=== PATIENT | female | born 1955 | race Caucasian/White ===

== ENCOUNTER 2019-08-16 18:53 | Inpatient (IN) | payer OTHER, MEDICARE ==
[~2019-08-16] VITALS: Ht 175.3 cm; Wt 67.8 kg
--- NOTE | 2019-08-16 18:53 | NUR ---
Patient BIBA ACLS, transferred to bed 4. RN evaluating patient at bedside.
[2019-08-16 18:55] VITALS: BP 136/86
--- NOTE | 2019-08-16 18:59 | NUR ---
PT TO ED VIA EMS FOR C/O SOB. PT TOOK AT HOME ALBUTEROL WITHOUT RELIEF. WHEEZES HEARD THROUGHOUT. TACHYPNIC ON ARRIVAL. BREATHING TX ESTABLISHED VIA EMS CREW. PT PLACED INTO BED FOR MD BAUTISTA.
--- NOTE | 2019-08-16 19:10 | NUR ---
PT PLACED ON 2L OF O2 FOR SATURATIONS BETWEEN 92%-94%.
--- NOTE | 2019-08-16 19:13 | NUR ---
REPORT TO MIGUEL YOU. ALL CARE TRANSFERED AT THIS TIME.
--- NOTE | 2019-08-16 19:30 | NUR ---
DR. ANDERSON AT BEDSIDE
[2019-08-16] MEDS ORDERED: IPRATROPIUM 0.02% 0.5 MG/2.5 ML NEBU INH ONE (19:35)
[2019-08-16] MEDS ORDERED: methylPREDNISolone SS 125 MG in WATER STERILE 2 ML IV ONE (19:35)
[2019-08-16] MEDS ORDERED: NACL 0.9% 1,000 ML IV ONE (19:35)
[2019-08-16] MEDS ORDERED: ALBUTEROL 0.083% 2.5 MG/3 ML NEBU INH ONE (19:43)
--- NOTE | 2019-08-16 19:59 | NUR ---
RT AT BEDSIDE
--- NOTE | 2019-08-16 20:19 | NUR ---
XRAY AT BEDSIDE
[2019-08-16 20:24] LABS: RED BLOOD CELL COUNT(AUTO) 5.45 MIL/uL (4.20-5.40)
[2019-08-16 20:36] LABS: HEMATOCRIT 47.9 % (36-48); MEAN CORPUSCULAR HEMOGLOBIN 29 pg (27-31); MEAN CORPUSCULAR HGB CONC 33 g/dL (33-37); PLATELET COUNT (AUTO) 51 K/uL (140-450); RED CELL DISTRIBUTION WIDTH 13.6 % (11.6-13.7); WHITE BLOOD COUNT (AUTO) 20.6 K/uL (4.8-10.8)
[2019-08-16 20:42] LABS: ALBUMIN 3.6 g/dL (3.4-5.0); ANION GAP 18.7 (8-16); CARBON DIOXIDE 21.9 mmol/L (21-32); CREATININE 0.8 mg/dL (0.6-1.3); POTASSIUM 3.6 mmol/L (3.5-5.1); TOTAL BILIRUBIN 1.3 mg/dL (0.0-1.0)
--- NOTE | 2019-08-16 21:00 | NUR ---
PT RESTING IN BED WITH EYES CLOSED. VSS. WILL CONTINUE TO MONITOR.
[2019-08-16] MEDS ORDERED: LEVOFLOXACIN 750 MG/D5W PREMIX 150 ML IV ONE (21:25)
[2019-08-16 21:27] LABS: LYMPHOCYTES % (MANUAL) 12 % (20-46); MONOCYTES % (MANUAL) 3 % (5-12)
[2019-08-16 22:00] VITALS: BP 107/70
--- NOTE | 2019-08-16 22:00 | NUR ---
ADMITTED A 64F FROM ER. CAME BY JOSUÉ DUE TO SOB AND PRODUCTIVE COUGH. AWAKE,ALERT AND ORIENTED X4. ON TEL MONITOR -ST. ON O22L/NC. NO DISTRESS NOTED. HAS STILL IBF INFUSING WELL ON THE RT HAND G#22. CLEAR AND PATENT. LEVAQUIN IVPB STILL NEED TO CONTINUE . ORIENTED PT TO HOSPITAL ROUTINES. PLAN O CARE CARE DISCUSSED AND WILL STILL FOLLOW UP WIT ADMITTING ORDER FROM MD. BED ON LOW POSITION, FREQ ROUNDS NEEDED. SIDE RAILS UP X2. CALL LIGHT WITHIN EASY REACH. HIGH RSIK FOR FALL INITIATED FOR PT SAID SHE AMBULATES REALLY SLOW DUE TO HER SOB. WILL CONTINUE TO MONITOR.
--- NOTE | 2019-08-16 22:10 | NUR ---
Transfer of care and report given to MIGUEL Mcgee
--- NOTE | 2019-08-16 22:10 | NUR ---
Patient will be admitted to care of Dr. Munoz. Admited to Tele. Will go to room 106b. Belongings list completed. Report to MIGUEL Mcgee.
[2019-08-16] MEDS ORDERED: ALBU0.0912 INH (23:07)
--- NOTE | 2019-08-16 23:35 | NUR ---
PAGED DR. MERINO FOR ADMIT ORDERS. DR. GARSIA SHOE REPAIRER. WILL WAIT FOR CALL BACK.
--- NOTE | 2019-08-16 23:40 | NUR ---
DR. GARSIA CALLED BACK WITH ADMITTING ORDERS.
[2019-08-16] MEDS ORDERED: ONDANSETRON 4 MG/2 ML VIAL IVP PRN (23:50)
[2019-08-16] MEDS ORDERED: ACETAMINOPHEN 325 MG TAB PO PRN (23:50)
[2019-08-16] MEDS ORDERED: NACL 0.45% 1,000 ML IV SCH (23:55)
[2019-08-16] MEDS ORDERED: ALBU0.0912 IH (23:56)
[2019-08-16] MEDS ORDERED: FLUT1AER15 IH (23:59)
[2019-08-17] MEDS ORDERED: ALBUTEROL SULFATE/IPRATROPIU 3 ML SOL IH PRN (00:05)
[2019-08-17] MEDS ORDERED: ALBU0.0912 IH (00:05)
--- NOTE | 2019-08-17 02:00 | NUR ---
ASLEEP. NO S/S OF ANY DISTRESS NOTED. WILL CONTINUE TO MONITOR.
[2019-08-17 04:00] VITALS: BP 117/74
--- NOTE | 2019-08-17 05:00 | NUR ---
PT STABLE . WITH NO SOB NOTED. NEED SPUTUM SPECIMEN FOR CULTURE PROTOCOL FOR PNA. WILL ENDORSE TO AM NURSE.
--- NOTE | 2019-08-17 06:54 | NUR ---
PT ASLEEP. NO S/S OF ANY DISTRESS NOTED.
[2019-08-17] MEDS ORDERED: ALBUTEROL SULFATE/IPRATROPIU 3 ML SOL IH SCH (07:00)
--- NOTE | 2019-08-17 07:36 | NUR ---
ENDORSED PT TO MIGUEL ALEJANDROQUALITY ASSURANCE INTERN IN STABLE CONDITION .
[2019-08-17 08:00] VITALS: BP 110/79
--- NOTE | 2019-08-17 08:26 | NUR ---
PATIENT HAS BEEN SCREENED AND CATEGORIZED MODERATE NUTRITION RISK. PATIENT WILL BE SEEN WITHIN 3-5 DAYS OF ADMISSION. 08/17/19 08/21/[address]
[2019-08-17 08:35] LABS: HEMATOCRIT 43.2 % (36-48); HEMOGLOBIN 14.5 g/dL (12.0-16.0); LYMPHOCYTES # (AUTO) 0.6 K/uL (2.5-16.5); LYMPHOCYTES % (AUTO) 3.4 % (20.5-51.1); MEAN CORPUSCULAR HEMOGLOBIN 29 pg (27-31); MEAN CORPUSCULAR HGB CONC 33 g/dL (33-37); MEAN CORPUSCULAR VOLUME 87.5 fL (80-94); MONOCYTES # (AUTO) 0.4 K/uL (0.8-1.0); MONOCYTES % (AUTO) 1.9 % (1.7-9.3); NEUTROPHILS % (AUTO) 94.7 % (42.2-75.2); PLATELET COUNT (AUTO) 57 K/uL (140-450); RED BLOOD CELL COUNT(AUTO) 4.94 MIL/uL (4.20-5.40); RED CELL DISTRIBUTION WIDTH 13.1 % (11.6-13.7)
[2019-08-17 08:49] LABS: MAGNESIUM 1.9 mg/dL (1.8-2.4); PHOSPHORUS 3.5 mg/dL (2.5-4.9)
[2019-08-17 09:19] LABS: ALBUMIN 2.9 g/dL (3.4-5.0); ANION GAP 18.4 (8-16); CARBON DIOXIDE 19.1 mmol/L (21-32); CREATININE 0.6 mg/dL (0.6-1.3); POTASSIUM 3.5 mmol/L (3.5-5.1); TOTAL BILIRUBIN 0.8 mg/dL (0.0-1.0)
--- NOTE | 2019-08-17 10:17 | NUR ---
EXPLAINED TO PT NEED FOR A SPUTUM SAMPLE. PLCAED CUP AT BEDSIDE.
--- NOTE | 2019-08-17 11:39 | NUR ---
PER [facility] PROVIDER WEBSITE, PATIENT NEED TO MAKE APPOINTMENT WITH MEDICARE PHYSICIAN. PATIENT IS MEDI-MEDI.
[2019-08-17] MEDS ORDERED: LEVO750T2 PO (12:12)
[2019-08-17] MEDS ORDERED: PRED20TA5 PO (12:13)
[2019-08-17] MEDS ORDERED: SPIMDI INH (12:15)
[2019-08-17 12:22] VITALS: BP 114/70
--- NOTE | 2019-08-17 13:00 | NUR ---
D/C TO HOME VIA WHEELCHAIR ACCOMPANIED BY HER DAUGHTER WESLEY. D/C INSTRUCTION AND PRESCRIPTION GIVEN AND VERBALIZED UNDERSTANDING. IN STABLE CONDITION.
[2019-08-17] MEDS ORDERED: LEVOFLOXACIN 750 MG/D5W PREMIX 150 ML IV SCH (21:00)
== END 2019-08-17 13:00 | disposition home or self-care (01) | DRG 720 ==
LOC: MED 18:53 → MTU 21:52
PROVIDERS: ADMIT Internal Medicine Pulmonary Disease; ATTEND Internal Medicine Pulmonary Disease
DX: A41.9 Sepsis, unspecified organism (principal); J96.01 Acute respiratory failure with hypoxia; J43.9 Emphysema, unspecified; D69.6 Thrombocytopenia, unspecified; F17.210 Nicotine dependence, cigarettes, uncomplicated; J18.1 Lobar pneumonia, unspecified organism; Z88.2 Allergy status to sulfonamides
CPT/HCPCS: 36415; 71045; 80053; 83605; 83735; 84100; 84484; 85025; 87040; 87070; 87081; 87186; 87205; 94640; 96374; 99285; J1956; J2930; J7613; J7620; J7644; Q0092

== ENCOUNTER 2022-10-11 19:05 | Inpatient (IN) | payer OTHER, MEDICARE ==
[~2022-10-11] VITALS: Ht 175.3 cm; Wt 68.9 kg
[~2022-10-11 19:05] MED LIST: ALBU0.0912 IH; FLUT1AER15 IH; LEVO750T2 PO; PRED20TA5 PO; SPIMDI INH
[2022-10-11 19:10] VITALS: BP 128/54
--- NOTE | 2022-10-11 19:17 | NUR ---
PT TO BED 01 VIA W/C.
[2022-10-11] MEDS ORDERED: methylPREDNISolone SS 125 MG/2 ML VIAL IM ONE (19:20)
[2022-10-11] MEDS ORDERED: ALBUTEROL SULFATE/IPRATROPIU 3 ML SOL IH ONE ×2 (19:20→19:30)
--- NOTE | 2022-10-11 19:20 | NUR ---
RECEIVED IN BED 1 WITH C/O SOB X 1 WEEK. PT WITH H/O COPD. PT STATES SHE HAS COUGH AND HAS BEEN CONGESTED PMHx: COPD
--- NOTE | 2022-10-11 19:27 | NUR ---
RT AT BEDSIDE
[2022-10-11 19:53] LABS: BASOPHILS % (AUTO) 0.3 % (0.0-2.0); EOSINOPHILS # (AUTO) 0.1 K/uL (0-0.4); EOSINOPHILS % (AUTO) 0.6 % (0.0-4.0); HEMATOCRIT 38.6 % (36-48); HEMOGLOBIN 12.9 g/dL (12.0-16.0); LYMPHOCYTES # (AUTO) 1.8 K/uL (2.5-16.5); LYMPHOCYTES % (AUTO) 12.5 % (20.5-51.1); MEAN CORPUSCULAR HEMOGLOBIN 29 pg (27-31); MEAN CORPUSCULAR HGB CONC 33 g/dL (33-37); MEAN CORPUSCULAR VOLUME 85.2 fL (80-94); MONOCYTES # (AUTO) 0.8 K/uL (0.8-1.0); MONOCYTES % (AUTO) 5.7 % (1.7-9.3); NEUTROPHILS # (AUTO) 11.9 K/uL (1.8-7.7); NEUTROPHILS % (AUTO) 80.9 % (42.2-75.2); PLATELET COUNT (AUTO) 340 K/uL (140-450); RED BLOOD CELL COUNT(AUTO) 4.53 MIL/uL (4.20-5.40); RED CELL DISTRIBUTION WIDTH 13.5 % (11.6-13.7); WHITE BLOOD COUNT (AUTO) 14.7 K/uL (4.8-10.8)
[2022-10-11 20:12] LABS: ALBUMIN 2.3 g/dL (3.4-5.0); ANION GAP 9.8 (8-16); ASPARTATE AMINOTRANSFERASE 15 U/L (15-37); CARBON DIOXIDE 28.1 mmol/L (21-32); CHLORIDE 98 mmol/L (98-107); CREATININE 0.6 mg/dL (0.6-1.3); GFR ARICAN-AMERICAN 127 mL/min (>90); GLUCOSE 141 mg/dL (74-106); SODIUM SERUM 133 mmol/L (136-145); TOTAL BILIRUBIN 0.7 mg/dL (0.0-1.0); UREA NITROGEN, BLOOD 9 mg/dL (7-18)
[2022-10-11 20:16] LABS: POTASSIUM 2.9 mmol/L (3.5-5.1)
[2022-10-11] MEDS ORDERED: POTASSIUM CHLORIDE 10 MEQ TABER PO ONE (20:20)
[2022-10-11] MEDS ORDERED: MAG SULF 2000 MG/WATER PREMIX 50 ML IV PRN (21:20)
[2022-10-11] MEDS ORDERED: MORPHINE SULFATE 4 MG/ML SYR IVP PRN (21:20)
[2022-10-11] MEDS ORDERED: ONDANSETRON 4 MG/2 ML VIAL IVP PRN (21:20)
[2022-10-11] MEDS ORDERED: KCL 20 MEQ/WATER INJ PREMIX 200 ML IV PRN (21:20)
[2022-10-11] MEDS ORDERED: MAGNESIUM OXIDE 400 MG TAB PO PRN (21:20)
[2022-10-11] MEDS ORDERED: HYDROcodone/APAP 5/325 MG 1 TAB TAB PO PRN (21:20)
[2022-10-11] MEDS ORDERED: ACETAMINOPHEN 325 MG TAB PO PRN (21:20)
[2022-10-11] MEDS ORDERED: POTASSIUM CHLORIDE 10 MEQ TABER PO PRN (21:20)
[2022-10-11] MEDS ORDERED: cefTRIAXone 1,000 MG VIAL ONE (21:30)
[2022-10-11] MEDS ORDERED: ALBUTEROL SULFATE/IPRATROPIU 3 ML SOL IH PRN (21:35)
--- NOTE | 2022-10-11 22:05 | NUR ---
TO BED 104B VIA [facility], REPORT GIVEN TO MIGUEL BECERRA
[2022-10-11 22:10] VITALS: BP 117/62
--- NOTE | 2022-10-11 22:30 | NUR ---
RECEIVED PT FROM ER NURSE OSMAN. PT ARRIVED VIA GURNEY, AMBULATED TO BED WITH ASSIST. PT ALERT AND ORIENTED X 4, ON 2LITERS O2 VIA NC, BREATHING IS LABORED. PT WANTS TO BE SEATED UPRIGHT. ALSO REQUESTING SOME JUICE AND SANDWICH.IV ON L AC G 20, INTACT AND PATENT. PT REFUSED SKIN INSPECTION. MRSA SWAB DONE. ORIENTED TO CALL LIGHT. ALL PRECAUTIONS IN PLACE. WILL CONTINUE TO MONITOR.
[2022-10-12] MEDS ORDERED: guaiFENesin 20 MG/ML UDC ONE (00:39)
[2022-10-12] MEDS: guaiFENesin 20 MG/ML UDC PO PRN ×2 (01:09→14:13)
--- NOTE | 2022-10-12 01:10 | NUR ---
COUGH MEDICINE GIVEN PER MD ORDERS. PT TOLERATED WELL.WILL CONTINUE TO MONITOR.
--- NOTE | 2022-10-12 01:42 | NUR ---
PT ASLEEP. ON 2L O2, NO S/SX OF DISTRESS AT THIS MOMENT. ALL PRECAUTIONS IN PLACE. CALL LIGHT WITHIN REACH. WILL CONTINUE TO MONITOR.
[2022-10-12 04:00] VITALS: BP 128/55
[2022-10-12] MEDS ORDERED: methylPREDNISolone SS 40 MG/ML VIAL IVP SCH (05:00)
--- NOTE | 2022-10-12 05:00 | NUR ---
SCHEDULED MEDICATIONS GIVEN. BREATHING EQUAL AND UNLABORED AT THIS TIME. NO DISTRESS NOTED. CALL LIGHT WITHIN REACH. WILL CONTINUE TO MONITOR.
--- NOTE | 2022-10-12 06:33 | NUR ---
PT IS STABLE. NO ACUTE EVENTS THROUGHOUT THE NIGHT. NO S/SX OF DISTRESS AT THIS TIME. NO COMPLAINS OF PAIN. ALL PRECAUTIONS IN PLACE. CALL LIGHT WITHIN REACH. WILL ENDORSE TO AM SHIFT NURSE.
--- NOTE | 2022-10-12 06:59 | NUR ---
PT SITTING UP IN BED COMFORTABLY NO SOB NOTED PT REFUSED BREATHING AT THE MOMENT BUT WILL CALL US WHEN NEEDED PT SATURATION 95% ON 2L O2 WILL CONT TO MONITOR
[2022-10-12 07:33] LABS: BASOPHILS % (AUTO) 0.1 % (0.0-2.0); HEMATOCRIT 40.6 % (36-48); HEMOGLOBIN 13.7 g/dL (12.0-16.0); LYMPHOCYTES # (AUTO) 0.5 K/uL (2.5-16.5); LYMPHOCYTES % (AUTO) 4.1 % (20.5-51.1); MEAN CORPUSCULAR HEMOGLOBIN 29 pg (27-31); MEAN CORPUSCULAR HGB CONC 34 g/dL (33-37); MONOCYTES # (AUTO) 0.2 K/uL (0.8-1.0); MONOCYTES % (AUTO) 1.6 % (1.7-9.3); NEUTROPHILS # (AUTO) 10.7 K/uL (1.8-7.7); NEUTROPHILS % (AUTO) 94.2 % (42.2-75.2); PLATELET COUNT (AUTO) 331 K/uL (140-450); RED BLOOD CELL COUNT(AUTO) 4.72 MIL/uL (4.20-5.40); RED CELL DISTRIBUTION WIDTH 13.5 % (11.6-13.7); WHITE BLOOD COUNT (AUTO) 11.4 K/uL (4.8-10.8)
[2022-10-12 07:51] LABS: ALBUMIN 2.5 g/dL (3.4-5.0); ANION GAP 10.4 (8-16); CARBON DIOXIDE 30.6 mmol/L (21-32); CREATININE 0.6 mg/dL (0.6-1.3); TOTAL BILIRUBIN 0.6 mg/dL (0.0-1.0)
[2022-10-12 08:00] VITALS: BP 97/63
--- NOTE | 2022-10-12 08:21 | NUR ---
PATIENT HAS BEEN SCREENED AND CATEGORIZED MODERATE NUTRITION RISK. PATIENT WILL BE SEEN WITHIN 3-5 DAYS OF ADMISSION. 10/11/22-10/16/[address]
[2022-10-12] MEDS: DOCUSATE SODIUM 100 MG GELCAP PO SCH (08:55)
[2022-10-12 12:00] VITALS: BP 103/66
[2022-10-12] MEDS: ALBUTEROL SULFATE/IPRATROPIU 3 ML SOL IH SCH ×2 (12:10→19:38)
--- NOTE | 2022-10-12 15:32 | NUR ---
P.T. NOTES P.T. EVAL COMPLETED; REFER TO EVAL FOR DETAILS.
[2022-10-12 16:00] VITALS: BP 105/64
--- NOTE | 2022-10-12 18:20 | NUR ---
RECEIVED A CALL FROM LAB THAT PATIENT IS POSITIVE FOR INFLUENZA A. PATIENT NOTIFIED. CHARGE NURSE NOTIFIED AND DR. EDMONDSON NOTIFIED, ORDERS GIVEN TO START PATIENT ON OSELTAMIVIR. PATIENT PLACED ON ISOLATION. Jamie CANCINO RN.
--- NOTE | 2022-10-12 18:49 | NUR ---
PATIENT PULLED OUT HER IV. ATTEMPTED TO START A NEW IV AND PATIENT IS REFUSING A NEW IV AND STATES SHE WANTS TO LEAVE AMA. ENCOURAGED PATIENT TO STAY FOR TREATMENT AND EXPLAINED THE RISK OF LEAVING AMA. PATIENT STATES SHE STILL WANTS TO LEAVE. DR. EDMONDSON CALLED AND NOTIFIED. CHARGE NURSE NOTIFIED. WILL HAVE PATIENT SIGN AMA FORM. Jamie CANCINO RN.
--- NOTE | 2022-10-12 19:01 | NUR ---
PATIENT DECIDED NOT TO LEAVE AMA. DR. EDMONDSON AND CHARGE NURSE NOTIFIED. WILL ENDORSE PATIENT NEEDS IV STARTED TO NIGHT NURSE. Jamie CANCINO RN.
--- NOTE | 2022-10-12 19:30 | NUR ---
RECEIVED PT FROM DAY RN FOR CONTINUITY OF CARE.PT ALERT AND ORIENTED X 4 , ON 2LITERS O2 VIA NC, BREATHING IS EQUAL AND UNLABORED. PT IS DROPLET PRECAUTION FOR FLU.NO IV ACCESS. ALL PRECAUTIONS IN PLACE. WILL CONTINUE TO MONITOR.
[2022-10-12 20:00] VITALS: BP_SYST 111; BP_SYST 117; BP_DIAS 62; BP_DIAS 67
[2022-10-12] MEDS: OSELTAMIVIR PHOSPHATE 75 MG CAP PO SCH (21:00)
[2022-10-12] MEDS ORDERED: AZITHROMYCIN 500 MG in DEXTROSE 5% 250 ML IV SCH (21:30)
--- NOTE | 2022-10-12 22:30 | NUR ---
SCHEDULED MEDICATIONS GIVEN. BREATHING EQUAL AND UNLABORED AT THIS TIME. NO DISTRESS NOTED. CALL LIGHT WITHIN REACH. WILL CONTINUE TO MONITOR.
[2022-10-13 00:16] VITALS: BP 107/67
--- NOTE | 2022-10-13 01:41 | NUR ---
PT ASLEEP. ON 2L O2 VIA NC , O2 SAT 98%, NO S/SX OF DISTRESS AT THIS MOMENT. ALL PRECAUTIONS IN PLACE. CALL LIGHT WITHIN REACH. WILL CONTINUE TO MONITOR.
[2022-10-13 04:00] VITALS: BP 112/60
[2022-10-13] MEDS: ALBUTEROL SULFATE/IPRATROPIU 3 ML SOL IH SCH ×4 (05:07→19:00)
--- NOTE | 2022-10-13 07:30 | NUR ---
RECEIVED PATIENT FROM PRODUCE CLERK NURSE FOR CONTINUITY OF CARE. PT IS AOX4, ABLE TO MAKE NEEDS KNOWN. ON 2 L NC WITH O2 SATURATION AT 95%. RESPIRATIONS EVEN AND UNLABORED. ON ROOM AIR AND NO DISTRESS NOTED. SKIN IS WARM DRY AND INTACT. IV SITE ON LFA 22G SALINE LOCKED. INTACT AND PATENT. DENIES PAIN AT THE MOMENT. PLAN OF CARE DISCUSSED. SAFETY PRECAUTIONS IN PLACE. CALL LIGHT WITHIN REACH. WILL CONTINUE TO MONITOR.
[2022-10-13 08:00] VITALS: BP 121/75
[2022-10-13] MEDS: DOCUSATE SODIUM 100 MG GELCAP PO SCH (09:00)
[2022-10-13] MEDS: OSELTAMIVIR PHOSPHATE 75 MG CAP PO SCH ×2 (09:41→21:37)
[2022-10-13] MEDS: methylPREDNISolone SS 40 MG/ML VIAL IVP SCH (09:42)
--- NOTE | 2022-10-13 09:45 | NUR ---
ALL SCHEDULED MEDS GIVEN. PT IS STABLE. NO DISTRESS NOTED. WILL CONTINUE TO MONITOR.
[2022-10-13 10:18] LABS: BASOPHILS % (AUTO) 0.2 % (0.0-2.0); HEMATOCRIT 39.4 % (36-48); HEMOGLOBIN 13.1 g/dL (12.0-16.0); LYMPHOCYTES # (AUTO) 1.6 K/uL (2.5-16.5); LYMPHOCYTES % (AUTO) 7.2 % (20.5-51.1); MEAN CORPUSCULAR HEMOGLOBIN 29 pg (27-31); MEAN CORPUSCULAR HGB CONC 33 g/dL (33-37); MEAN CORPUSCULAR VOLUME 86.3 fL (80-94); MONOCYTES % (AUTO) 4.5 % (1.7-9.3); NEUTROPHILS # (AUTO) 19.5 K/uL (1.8-7.7); NEUTROPHILS % (AUTO) 88.1 % (42.2-75.2); PLATELET COUNT (AUTO) 483 K/uL (140-450); RED BLOOD CELL COUNT(AUTO) 4.57 MIL/uL (4.20-5.40); RED CELL DISTRIBUTION WIDTH 13.7 % (11.6-13.7); WHITE BLOOD COUNT (AUTO) 22.2 K/uL (4.8-10.8)
[2022-10-13 10:35] LABS: ALBUMIN 2.4 g/dL (3.4-5.0); ANION GAP 10.6 (8-16); CREATININE 0.7 mg/dL (0.6-1.3); MAGNESIUM 2.1 mg/dL (1.8-2.4); POTASSIUM 3.6 mmol/L (3.5-5.1); TOTAL BILIRUBIN 0.3 mg/dL (0.0-1.0)
[2022-10-13] MEDS ORDERED: ALBUTEROL 0.083% 2.5 MG/3 ML NEBU INH PRN (11:05)
[2022-10-13 12:00] VITALS: BP 127/79
--- NOTE | 2022-10-13 15:00 | NUR ---
RT WAS AT BEDSIDE GIVING BREATHING TREATMENTS
[2022-10-13 16:00] VITALS: BP 111/68
[2022-10-13 20:00] VITALS: BP 105/63
[2022-10-13] MEDS ORDERED: levoFLOXacin 750 MG TAB PO SCH (21:00)
[2022-10-13] MEDS ORDERED: predniSONE 20 MG TAB PO SCH (21:00)
--- NOTE | 2022-10-13 22:00 | NUR ---
PT ABLE TO SWALLOW PILL MEDICATIONS ORALLY WITH NO PROBLEM. NO NOTED ANY ASPIRATION.
[2022-10-14] VITALS: BP 149/79
[2022-10-14] MEDS: ALBUTEROL SULFATE/IPRATROPIU 3 ML SOL IH SCH ×2 (01:00→08:55)
--- NOTE | 2022-10-14 01:00 | NUR ---
PT COMPLAINTS OF TOLERABLE PAIN ON RIGHT LATERAL SIDE RELATED TO COUGHING, OFFER COGH SYRUP ROBITUSSIN, PT REFUSED. PT STATED SHE PREFER TO HAVE BREATHING TREATMENT WITH RT.
[2022-10-14 04:00] VITALS: BP 119/78
[2022-10-14 08:00] VITALS: BP 117/75
[2022-10-14] MEDS: DOCUSATE SODIUM 100 MG GELCAP PO SCH (09:15)
[2022-10-14] MEDS: OSELTAMIVIR PHOSPHATE 75 MG CAP PO SCH (09:16)
[2022-10-14] MEDS: methylPREDNISolone SS 40 MG/ML VIAL IVP SCH (09:16)
[2022-10-14] MEDS ORDERED: PRED20TA5 PO (11:04)
[2022-10-14] MEDS ORDERED: LEVO750T75 PO (11:04)
[2022-10-14] MEDS ORDERED: TAM75 PO ×2 (11:07→11:12)
[2022-10-14 12:28] VITALS: BP 117/75
--- NOTE | 2022-10-14 13:12 | NUR ---
RECEIVED DISCHARGE ORDERS, DISCHARGE PACKET GIVEN AND EXPLAINED TO PATIENT AND FAMILY AT BEDSIDE. PATIENT VERBALIZED UNDERSTANDING OF ALL DISCHARGE INSTRUCTIONS/PRESCRIPTIONS/MEDICATIONS/EDUCATION MATERIAL. PT INSTRUCTED TO FOLLOW UP WITH PCP IN 1-2 DAYS. PT STATES SHE WILL DIGITAL MARKETING EXECUTIVE PRESCRIPTIONS AT PREFERRED PHARMACY AFTER D/C. SIGNED DISCHARGE PACKET PLACED IN CHART. DRESSED AND PREPARED FOR DISCHARGE. PT ON 1L OF , OXYGEN SAT 96%, FAMILY MEMBER BROUGHT HOME 02 FOR DISCHARGE. NO IV SITE, ARMBAND REMOVED. 1312 PT DISCHARGED HOME WITH FAMILY, LEFT WITH ALL BELONGINGS.
== END 2022-10-14 13:20 | disposition home or self-care (01) | DRG 139 ==
LOC: MED 19:05 → MTU 21:31
PROVIDERS: ADMIT Internal Medicine; ATTEND Internal Medicine
DX: J12.9 Viral pneumonia, unspecified (principal); J96.01 Acute respiratory failure with hypoxia; E43 Unspecified severe protein-calorie malnutrition; R65.10 Systemic inflammatory response syndrome (SIRS) of non-infectious origin without acute organ dysfunction; E87.1 Hypo-osmolality and hyponatremia; J44.0 Chronic obstructive pulmonary disease with (acute) lower respiratory infection; J44.1 Chronic obstructive pulmonary disease with (acute) exacerbation; J10.1 Influenza due to other identified influenza virus with other respiratory manifestations; Z20.822 Contact with and (suspected) exposure to COVID-19; F15.10 Other stimulant abuse, uncomplicated; E87.6 Hypokalemia; D72.829 Elevated white blood cell count, unspecified; Z88.2 Allergy status to sulfonamides; Z59.00 Homelessness unspecified; Z72.0 Tobacco use
CPT/HCPCS: 36415; 71045; 80053; 83605; 83735; 83880; 84484; 85025; 87040; 87081; 93005; 94640; 96365; 96372; 97116; 97163-GP; 99285; J0456; J0696; J1644; J2270; J2920; J2930; J7060; J7512; J7613